=== PATIENT | female | born 1975 | race Caucasian/White ===

== ENCOUNTER 2019-05-27 11:47 | Inpatient (IN) ==
[2019-05-27] MEDS ORDERED: CeFAZolin 2,000 MG/50 ML BAG IVPB ONE (12:11)
[2019-05-27] MEDS ORDERED: Famotidine 20 MG/2 ML VIAL IVP ONE (12:11)
[2019-05-27] MEDS ORDERED: Metoclopramide 10 MG/2 ML VIAL IVP ONE (12:11)
[2019-05-27] MEDS ORDERED: Ringers Solution, Lactated 1,000 ML IVC ONE (12:11)
[2019-05-27] MEDS ORDERED: Ringers Solution, Lactated 1,000 ML IVC SCH (12:15)
[2019-05-27 12:43] LABS: Basophils % 0.4 %; Eosinophils % 0.4 %; Hemoglobin 13.3 g/dL (11.5-15.4); Immature Granulocytes % 0.6 % (0-4); Mean Corpuscular HGB Conc 33.3 g/dL (31.6-35.5); Mean Corpuscular Hemoglobin 31.2 pg (28.0-33.3); Mean Corpuscular Volume 93.9 fL (83.0-100.0); Mean Platelet Volume 11.7 fL (9.4-12.4); Monocytes # 0.9 K/mcL (0.0-1.3); Monocytes % 8.8 %; Neutrophils # 7.4 K/mcL (1.6-8.9); Platelet Count 212 K/mcL (140-400); Red Blood Count 4.26 M/mcL (3.82-4.97); Red Cell Distribution Width 14.5 % (11.5-14.5); Segmented Neutrophils % 70.8 %; White Blood Count 10.4 K/mcL (4.3-11.1)
[2019-05-27 14:01] LABS: Alanine Aminotransferase 11 Units/L (7-52); Aspartate Amino Transferase 24 Units/L (13-39); BUN/Creatinine Ratio 14 (6-26); Blood Urea Nitrogen 8 mg/dL (6-20); eGFR For African Americans > 60 (> 60); eGFR For Non-African Americans > 60 (> 60)
[2019-05-27 14:20] LABS: Lactate Dehydrogenase 217 Units/L (140-271); Uric Acid 5.9 mg/dL (2.3-7.6)
[2019-05-27] MEDS ORDERED: *HR* FentaNYL (PF) 100 MCG/2 ML VIAL ONE (14:37)
[2019-05-27] MEDS ORDERED: Ondansetron 4 MG/2 ML VIAL ONE (14:37)
[2019-05-27] MEDS ORDERED: EPHEDrine 50 MG/ML VIAL ONE (14:37)
[2019-05-27] MEDS ORDERED: *HR* Morphine Sulfate/PF 10 MG/10 ML AMPUL ONE (14:37)
[2019-05-27] MEDS ORDERED: *HR* Midazolam HCl 2 MG/2 ML VIAL ONE (14:38)
[2019-05-27] MEDS ORDERED: Ringers Solution, Lactated 1,000 ML ONE (14:39)
[2019-05-27] MEDS ORDERED: Ibuprofen 400 MG TABLET PO PRN (15:01)
[2019-05-27] MEDS ORDERED: Ondansetron 4 MG/2 ML VIAL IVP PRN ×2 (15:01→19:45)
[2019-05-27] MEDS ORDERED: *HR* OxyCODONE/APAP 5/325 TABLET PO PRN (15:01)
[2019-05-27] MEDS ORDERED: Acetaminophen IV 1,000 MG/100 ML INFUS..BTL IVPB ONE (15:02)
[2019-05-27] MEDS ORDERED: *HR* Oxytocin 10 UNIT/ML VIAL IM ONE (16:41)
[2019-05-27] MEDS ORDERED: Oxytocin 20 units/ LR 1000 mL 20 UNIT/1,000 ML BAG IVC ONE (18:00)
[2019-05-27] MEDS ORDERED: Rho Immune Globulin 1,500 UNIT SYRINGE IM ONE (19:45)
[2019-05-27] MEDS ORDERED: Simethicone 80 MG TAB.CHEW PO PRN (19:45)
[2019-05-27] MEDS ORDERED: Ibuprofen 600 MG TABLET PO PRN (19:45)
[2019-05-27] MEDS ORDERED: Sennosides 8.6 MG TABLET PO PRN (19:45)
[2019-05-27] MEDS ORDERED: Oxytocin 20 units/ LR 1000 mL 20 UNIT/1,000 ML BAG IVC SCH (19:45)
[2019-05-27] MEDS ORDERED: Metoclopramide 10 MG/2 ML VIAL IVP PRN (19:45)
[2019-05-27] MEDS: metroNIDAZOLE 500 MG TABLET PO SCH (22:03)
[2019-05-28] MEDS: ceFAZolin 2,000 MG in 0.9 % Sodium Chloride 100 ML IVPB SCH ×3 (01:19→15:30)
[2019-05-28 06:48] LABS: Basophils % 0.2 %; Eosinophils % 0.1 %; Hematocrit 33.2 % (35.3-44.9); Immature Granulocytes % 0.6 % (0-4); Lymphocytes # 1.6 K/mcL (0.6-4.6); Lymphocytes % 11.8 %; Mean Corpuscular HGB Conc 33.4 g/dL (31.6-35.5); Mean Corpuscular Hemoglobin 30.3 pg (28.0-33.3); Mean Corpuscular Volume 90.7 fL (83.0-100.0); Mean Platelet Volume 11.6 fL (9.4-12.4); Monocytes # 1.1 K/mcL (0.0-1.3); Neutrophils # 10.8 K/mcL (1.6-8.9); Platelet Count 189 K/mcL (140-400); Red Blood Count 3.66 M/mcL (3.82-4.97); Red Cell Distribution Width 13.9 % (11.5-14.5); Segmented Neutrophils % 79.3 %; White Blood Count 13.6 K/mcL (4.3-11.1)
[2019-05-28 06:50] LABS: Hemoglobin 11.1 g/dL (11.5-15.4)
[2019-05-28] MEDS: metroNIDAZOLE 500 MG TABLET PO SCH ×3 (08:22→21:06)
[2019-05-28] MEDS: lamoTRIgine 100 MG TABLET PO SCH (08:23)
[2019-05-28] MEDS ORDERED: Rho Immune Globulin 1,500 UNIT SYRINGE IM ONE (08:52)
[2019-05-28] MEDS: Prenatal Vit/FA 1 EACH TABLET PO SCH ×2 (09:15→10:02)
[2019-05-28] MEDS: *HR* OxyCODONE/APAP 5/325 TABLET PO PRN (09:38)
[2019-05-28] MEDS ORDERED: Ondansetron 4 MG/2 ML VIAL IVP PRN (10:01)
[2019-05-28] MEDS: Ketorolac 30 MG/ML VIAL IVP PRN ×3 (10:26→23:50)
[2019-05-28] MEDS ORDERED: Ringers Solution, Lactated 1,000 ML IVC SCH (10:30)
[2019-05-28] MEDS ORDERED: Ondansetron 4 MG/2 ML VIAL IVP SCH (12:00)
[2019-05-29] MEDS: Prenatal Vit/FA 1 EACH TABLET PO SCH (07:51)
[2019-05-29] MEDS: metroNIDAZOLE 500 MG TABLET PO SCH (07:51)
[2019-05-29] MEDS: lamoTRIgine 100 MG TABLET PO SCH (07:53)
[2019-05-29] MEDS: *HR* OxyCODONE/APAP 5/325 TABLET PO PRN (07:54)
[2019-05-29 07:57] VITALS: BP 125/55
== END 2019-05-29 11:47 | disposition home or self-care (01) | DRG 788 ==
LOC: 1NENULAB 11:47 → 1NENUOBS 19:43
PROVIDERS: ADMIT Obstetrics & Gynecology; ATTEND Obstetrics & Gynecology

== ENCOUNTER 2020-09-30 15:37 | Inpatient (IN) ==
[2020-09-30 17:13] LABS: Basophils # 0.1 K/mcL (0.0-0.2); Basophils % 0.5 %; Eosinophils # 0.1 K/mcL (0.0-0.6); Eosinophils % 0.5 %; Hematocrit 37.6 % (35.3-44.9); Hemoglobin 12.7 g/dL (11.5-15.4); Immature Granulocytes % 1.4 % (0-4); Lymphocytes # 1.6 K/mcL (0.6-4.6); Lymphocytes % 14.3 %; Mean Corpuscular HGB Conc 33.8 g/dL (31.6-35.5); Mean Corpuscular Hemoglobin 30.5 pg (28.0-33.3); Mean Corpuscular Volume 90.4 fL (83.0-100.0); Mean Platelet Volume 12.3 fL (9.4-12.4); Monocytes # 1.2 K/mcL (0.0-1.3); Monocytes % 10.6 %; Neutrophils # 8.1 K/mcL (1.6-8.9); Platelet Count 196 K/mcL (140-400); Red Blood Count 4.16 M/mcL (3.82-4.97); Red Cell Distribution Width 13.7 % (11.5-14.5); Segmented Neutrophils % 72.7 %; White Blood Count 11.1 K/mcL (4.3-11.1)
[2020-09-30 17:29] LABS: Alanine Aminotransferase 17 Units/L (7-52); Aspartate Amino Transferase 22 Units/L (13-39); BUN/Creatinine Ratio 13 (6-26); Blood Urea Nitrogen 7 mg/dL (6-20); Lactate Dehydrogenase 155 Units/L (140-271); Uric Acid 5.4 mg/dL (2.3-7.6); eGFR For African Americans > 60 (> 60); eGFR For Non-African Americans > 60 (> 60)
[2020-09-30 17:45] LABS: Bilirubin,Urine Negative (Negative); Blood,Urine Negative (Negative); Clarity,Urine Clear (Clear); Color,Urine Yellow (Yellow); Glucose,Urine (UA) Normal (Normal); Ketones,Urine Negative (Negative); Leukocyte Esterase,Urine Negative (Negative); Nitrite,Urine Negative (Negative); Protein,Urine Trace mg/dL (Neg-Trace); Urobilinogen,Urine Normal (Normal)
[2020-09-30] MEDS ORDERED: Famotidine 20 MG/2 ML VIAL IVP ONE (17:46)
[2020-09-30] MEDS ORDERED: CeFAZolin 2,000 MG/50 ML BAG IVPB ONE (17:46)
[2020-09-30] MEDS ORDERED: Metoclopramide 10 MG/2 ML VIAL IVP ONE (17:46)
[2020-09-30] MEDS ORDERED: Ringers Solution, Lactated 1,000 ML IVC ONE (17:46)
[2020-09-30 17:52] LABS: Protein/Creatinine Ratio,Urine 0.22 mg/mg (0.00-0.20)
[2020-09-30] MEDS ORDERED: [UNRECOGNIZED DRUG - OTHER] PO ONE (18:00)
[2020-09-30] MEDS ORDERED: Ringers Solution, Lactated 1,000 ML IVC SCH (18:00)
[2020-09-30] MEDS ORDERED: *HR* OxyCODONE Immed Rel 5 MG TABLET PO PRN (18:07)
[2020-09-30] MEDS ORDERED: *HR* FentaNYL (PF) 100 MCG/2 ML VIAL IVP PRN (18:07)
[2020-09-30] MEDS ORDERED: Oxytocin 20 units/ LR 1000 mL 20 UNIT/1,000 ML BAG IVC ONE ×2 (19:48→23:21)
[2020-09-30] MEDS ORDERED: *HR* Morphine Sulfate/PF 10 MG/10 ML AMPUL ONE (20:18)
[2020-09-30] MEDS ORDERED: *HR* FentaNYL (PF) 100 MCG/2 ML VIAL ONE (20:18)
[2020-09-30] MEDS ORDERED: *HR* Midazolam HCl 2 MG/2 ML VIAL ONE ×2 (20:29→21:45)
[2020-09-30] MEDS ORDERED: Ondansetron 4 MG/2 ML VIAL ONE (20:29)
[2020-09-30] MEDS ORDERED: Lidocaine -MPF 2% 5 ML VIAL ONE (20:41)
[2020-09-30 20:56] LABS: Bacteria,Urine Few per hpf (None-Few); Bilirubin,Urine Negative (Negative); Blood,Urine Negative (Negative); Clarity,Urine Clear (Clear); Color,Urine Light-Yellow (Yellow); Glucose,Urine (UA) 150 mg/dL (Normal); Ketones,Urine 10 mg/dL (Negative); Leukocyte Esterase,Urine Negative (Negative); Mucus,Urine Few per lpf (None-Few); Nitrite,Urine Negative (Negative); PH,Urine 6.5 pH Units (5.0-8.0); Protein,Urine Negative (Neg-Trace); RBC,Urine 0-3 per hpf (0-3); Specific Gravity,Urine 1.014 (1.010-1.025); Squamous Epithelial Cell,Urine Few per hpf (None-Few); Urobilinogen,Urine Normal (Normal); WBC,Urine 0-3 per hpf (0-3)
[2020-09-30 20:59] LABS: Amphetamine Screen,Urine Negative ng/mL (Cutoff=1000); Barbiturate Screen,Urine Negative ng/mL (Cutoff=200); Benzodiazepines Screen,Urine Negative ng/mL (Cutoff=200); Cannabinoid Screen,Urine Negative ng/mL (Cutoff = 50); Cocaine Screen,Urine Negative ng/mL (Cutoff= 300); Opiate Screen,Urine Negative ng/mL (Cutoff=300); Phencyclidine Screen,Urine Negative ng/mL (Cutoff=25)
[2020-09-30] MEDS ORDERED: Acetaminophen IV 1,000 MG/100 ML BAG IVPB ONE (21:25)
[2020-09-30] MEDS ORDERED: Ketorolac 30 MG/ML VIAL ONE (22:14)
[2020-09-30] MEDS ORDERED: *HR* Nalbuphine 10 MG/ML AMPUL IV PRN (22:40)
[2020-09-30] MEDS ORDERED: Ondansetron 4 MG/2 ML VIAL IVP PRN (23:58)
[2020-10-01] MEDS ORDERED: Ondansetron 4 MG/2 ML VIAL ONE (00:05)
[2020-10-01] MEDS ORDERED: Ondansetron 4 MG/2 ML VIAL IVP PRN (01:03)
[2020-10-01] MEDS ORDERED: *HR* OxyCODONE/APAP 5/325 TABLET PO PRN (01:03)
[2020-10-01] MEDS ORDERED: Rho Immune Globulin 1,500 UNIT SYRINGE IM ONE ×2 (01:03→14:35)
[2020-10-01] MEDS ORDERED: Metoclopramide 10 MG/2 ML VIAL IVP PRN (01:03)
[2020-10-01] MEDS: Acetaminophen 325 MG TABLET PO SCH ×3 (01:45→13:47)
[2020-10-01] MEDS: Oxytocin 20 units/ LR 1000 mL 20 UNIT/1,000 ML BAG IVC SCH ×2 (01:45→08:55)
[2020-10-01] MEDS ORDERED: Ringers Solution, Lactated 1,000 ML ONE (02:48)
[2020-10-01] MEDS ORDERED: Ketorolac 30 MG/ML VIAL IVP ONE (04:00)
[2020-10-01 05:32] LABS: Basophils # 0.1 K/mcL (0.0-0.2); Basophils % 0.3 %; Eosinophils % 0.1 %; Hematocrit 36.1 % (35.3-44.9); Immature Granulocytes % 0.9 % (0-4); Lymphocytes # 1.6 K/mcL (0.6-4.6); Lymphocytes % 9.9 %; Mean Corpuscular HGB Conc 33.2 g/dL (31.6-35.5); Mean Corpuscular Hemoglobin 30.8 pg (28.0-33.3); Mean Corpuscular Volume 92.6 fL (83.0-100.0); Mean Platelet Volume 11.9 fL (9.4-12.4); Monocytes # 1.1 K/mcL (0.0-1.3); Monocytes % 6.8 %; Neutrophils # 13.1 K/mcL (1.6-8.9); Platelet Count 175 K/mcL (140-400); Red Cell Distribution Width 13.9 % (11.5-14.5)
[2020-10-01] MEDS: Ibuprofen 600 MG TABLET PO SCH ×3 (08:56→21:30)
[2020-10-01] MEDS: Simethicone 80 MG TAB.CHEW PO SCH ×3 (08:57→21:31)
[2020-10-01] MEDS: lamoTRIgine 100 MG TABLET PO SCH (09:06)
[2020-10-01] MEDS: Prenatal Vit/FA 1 EACH TABLET PO SCH (09:06)
[2020-10-02] MEDS: Ibuprofen 600 MG TABLET PO SCH ×2 (05:18→09:21)
[2020-10-02 08:33] VITALS: BP 104/46
[2020-10-02] MEDS: Prenatal Vit/FA 1 EACH TABLET PO SCH (09:20)
[2020-10-02] MEDS: lamoTRIgine 100 MG TABLET PO SCH (09:21)
[2020-10-02] MEDS: Simethicone 80 MG TAB.CHEW PO SCH (09:21)
[2020-10-02] MEDS: Acetaminophen 325 MG TABLET PO SCH (09:21)
== END 2020-10-02 17:15 | disposition home or self-care (01) | DRG 785 ==
LOC: 1NENULAB 15:37 → 1NENUOBS 10-01 02:21
PROVIDERS: ADMIT Obstetrics & Gynecology; ATTEND Obstetrics & Gynecology